=== PATIENT | male | born 1960 | race Hispanic/Latino ===

== ENCOUNTER → 2024-03-21 | Day surgery (SDC) | payer OTHER ==
[~2024-03-21] MED LIST: ASPIRIN81 MG PO; COZAAR25 MG PO; CRESTOR40 MG PO; FLOMAX0.4 MG PO; JARDIANCE10 MG PO; LIDOCAINE HCL 2% LOCAL INJ 5 ML SDV VIAL INJ ONE; MIDAZOLAM HCL 2 MG/2 ML VIAL ONE; NORVASC5 MG PO; PROPOFOL IV EMULSION 10 MG/ML 20 ML VIAL ONE; TOPROL XL25 MG PO; TYLENOL EXTRA500 MG PO; ZETIA10 MG PO
[2024-03-21] MEDS: LACTATED RINGER'S 1,000 ML ONE (14:30)
[2024-03-21 15:38] VITALS: TEMP 97
[2024-03-21 16:00] VITALS: BP 139/90; PULSE 77; RESP 18; O2SAT 98
== END | disposition home or self-care (01) ==
LOC: OR 13:47
PROVIDERS: ATTEND Internal Medicine Gastroenterology
DX: Z12.11 Encounter for screening for malignant neoplasm of colon (principal); D12.2 Benign neoplasm of ascending colon; K57.30 Diverticulosis of large intestine without perforation or abscess without bleeding; K64.8 Other hemorrhoids; E11.9 Type 2 diabetes mellitus without complications; I10 Essential (primary) hypertension; E78.5 Hyperlipidemia, unspecified; Z01.810 Encounter for preprocedural cardiovascular examination; Z79.82 Long term (current) use of aspirin; Z79.84 Long term (current) use of oral hypoglycemic drugs; Z79.899 Other long term (current) drug therapy; Z68.33 Body mass index [BMI] 33.0-33.9, adult
CPT/HCPCS: 45384; 93005; J2003; J2250